=== PATIENT | male | born 1975 | race Caucasian/White ===

== ENCOUNTER 2020-03-12 07:30 | Inpatient (IN) | payer MEDICAID ==
[2020-04-16] MEDS ORDERED: Acetaminophen 500 MG Tab PO ONE (09:30)
[2020-04-16] MEDS ORDERED: Celecoxib 200 MG Cap PO ONE (09:30)
[2020-04-16] MEDS ORDERED: Scopolamine 1.5 MG Transdermal Patch TOP ONE (09:30)
[2020-04-16] MEDS ORDERED: Dextrose 5%-Lactated Ringers 1,000 ML IV SCH ×2 (09:30→16:15)
[2020-04-16 09:31] LABS: HEMOGLOBIN A1C 7.4 % (4.5-6.2)
[2020-04-16] MEDS ORDERED: Succinylcholine 200 MG/10 ML MDV ONE (09:59)
[2020-04-16] MEDS ORDERED: Propofol 200 MG/20 ML SDV ONE (09:59)
[2020-04-16] MEDS ORDERED: Ondansetron 4 MG/2 ML SDV ONE (09:59)
[2020-04-16] MEDS ORDERED: Dexamethasone 4 MG/ML SDV ONE (09:59)
[2020-04-16] MEDS ORDERED: Neostigmine Methylsulfate 1 MG/ML 5 ML Syringe ONE (09:59)
[2020-04-16] MEDS ORDERED: Rocuronium 50 MG/5 ML Vial ONE (09:59)
[2020-04-16] MEDS ORDERED: Glycopyrrolate 0.2 MG/ML 5 ML MDV ONE (09:59)
[2020-04-16] MEDS ORDERED: fentaNYL 250 MCG/5 ML SDV ONE ×2 (09:59→12:11)
[2020-04-16] MEDS ORDERED: Lactated Ringers 1,000 ML ONE (10:03)
[2020-04-16] MEDS ORDERED: Albuterol/Ipratropium 3.0-0.5 MG/3 ML Neb Soln NEB ONE (10:15)
[2020-04-16] MEDS ORDERED: cefOXitin 2 GM in Sodium Chloride 0.9% 50 ML IV ONE (10:30)
[2020-04-16] MEDS ORDERED: Magnesium Sulfate 5.5 GM in Sodium Chloride 0.9% 250 ML IV ONE (11:00)
[2020-04-16] MEDS ORDERED: Ketamine 500 MG/5 ML MDV IV SCH (11:00)
[2020-04-16] MEDS ORDERED: Magnesium Sulfate 3.5 GM in Sodium Chloride 0.9% 100 ML IV SCH (11:00)
[2020-04-16] MEDS ORDERED: Ketamine 50 MG in Sodium Chloride 0.9% 49.5 ML IV SCH (11:00)
[2020-04-16] MEDS ORDERED: cefOXitin 2 GM Vial ONE (12:21)
[2020-04-16] MEDS ORDERED: hydrOXYzine HCL 100 MG/2 ML SDV IM ONE (14:40)
[2020-04-16] MEDS ORDERED: fentaNYL 100 MCG/2 ML SDV IVPUSH ONE ×2 (14:41→14:52)
[2020-04-16] MEDS ORDERED: diphenhydrAMINE 50 MG/ML SDV IVPUSH PRN (16:10)
[2020-04-16] MEDS ORDERED: HYDROmorphone 0.5 MG/0.5 ML Syringe IVPUSH PRN (16:10)
[2020-04-16] MEDS ORDERED: Acetaminophen 500 MG Tab PO PRN (16:10)
[2020-04-16] MEDS ORDERED: Labetalol 20 MG/4 ML Syringe IVPUSH PRN (16:10)
[2020-04-16] MEDS ORDERED: Albuterol/Ipratropium 3.0-0.5 MG/3 ML Neb Soln INH PRN (16:10)
[2020-04-16] MEDS ORDERED: Calcium Gluconate 10% 1 GM/10 ML SDV IVPUSH PRN (16:10)
[2020-04-16] MEDS ORDERED: hydrOXYzine HCL 100 MG/2 ML SDV IM PRN (16:10)
[2020-04-16] MEDS: Lactated Ringers 1,000 ML IV SCH (16:35)
[2020-04-16] MEDS: HYDROmorphone 1 MG/ML Syringe IV PRN (16:40)
[2020-04-16] MEDS ORDERED: Non-Formulary Medication 1 Each IV ONE (17:03)
[2020-04-16] MEDS ORDERED: Labetalol 100 MG/20 ML MDV IVPUSH PRN (17:03)
[2020-04-16] MEDS: cefOXitin 2 GM in Sodium Chloride 0.9% 50 ML IV SCH ×3 (17:42→22:43)
[2020-04-16] MEDS: MVI, Adult with Vitamin K 10 ML, Thiamine 200 MG, Chromium/Copper/Mang/Selen/Zn 1 ML in... IV SCH ×4 (17:43)
[2020-04-16] MEDS: Pantoprazole 40 MG Vial IVPUSH SCH (17:46)
[2020-04-16] MEDS: Heparin Sodium 5,000 Units/ML Vial SUBCUT SCH (19:42)
[2020-04-16] MEDS: Fluticasone-Salmeterol 232-14 MCG Powder Inhalent INH SCH (20:58)
[2020-04-16] MEDS: Albuterol/Ipratropium 3.0-0.5 MG/3 ML Neb Soln INH SCH (20:58)
[2020-04-16] MEDS: Gabapentin 300 MG Cap PO SCH (21:01)
[2020-04-16] MEDS: Montelukast 10 MG Tab PO SCH (21:01)
[2020-04-16] MEDS: Prazosin 1 MG Cap PO SCH (21:02)
[2020-04-16] MEDS: Acetaminophen 500 MG Tab PO SCH (21:02)
[2020-04-16] MEDS: Insulin Lispro 100 Unit/ML 3 ML KwikPen SUBCUT PRN (22:22)
[2020-04-17] MEDS: HYDROmorphone 1 MG/ML Syringe IV PRN ×4 (01:16→19:15)
[2020-04-17] MEDS: Lactated Ringers 1,000 ML IV SCH ×2 (01:26→09:32)
[2020-04-17] MEDS ORDERED: Iopamidol 612 MG/ML 50 ML SDV PO STA (03:19)
[2020-04-17] MEDS: cefOXitin 2 GM in Sodium Chloride 0.9% 50 ML IV SCH ×3 (05:16→17:43)
[2020-04-17] MEDS: Acetaminophen 500 MG Tab PO SCH ×3 (05:26→21:41)
[2020-04-17] MEDS: Insulin Lispro 100 Unit/ML 3 ML KwikPen SUBCUT PRN (05:38)
[2020-04-17] MEDS: Ondansetron 4 MG/2 ML SDV IVPUSH PRN ×2 (05:42→11:25)
[2020-04-17] MEDS: Albuterol/Ipratropium 3.0-0.5 MG/3 ML Neb Soln INH SCH ×4 (07:16→20:13)
[2020-04-17] MEDS: Fluticasone-Salmeterol 232-14 MCG Powder Inhalent INH SCH ×2 (07:16→20:13)
[2020-04-17] MEDS: Heparin Sodium 5,000 Units/ML Vial SUBCUT SCH ×2 (07:50→20:11)
[2020-04-17] MEDS: Celecoxib 200 MG Cap PO SCH ×2 (09:25→20:15)
[2020-04-17] MEDS: Loratadine 10 MG Tab PO SCH (09:25)
[2020-04-17] MEDS: Escitalopram 20 MG Tab PO SCH (09:26)
[2020-04-17] MEDS: Gabapentin 300 MG Cap PO SCH ×3 (09:26→20:13)
[2020-04-17] MEDS: Hypromellose 0.3% Ophth Soln 15 ML Bottle EYEBOTH SCH (09:35)
[2020-04-17] MEDS: SCOPOLAMINE PATCH CHECK TOP SCH (09:36)
[2020-04-17] MEDS: Brimonidine 0.2% Ophth Soln 5 ML Bottle EYEBOTH SCH (09:36)
[2020-04-17] MEDS: amLODIPine 10 MG Tab PO SCH (09:43)
[2020-04-17] MEDS: Propranolol 60 MG Cap.ER PO SCH (09:43)
[2020-04-17] MEDS: Metoclopramide 10 MG/2 ML SDV IVPUSH PRN (16:03)
[2020-04-17] MEDS: Pantoprazole 40 MG Vial IVPUSH SCH ×2 (16:11→16:34)
[2020-04-17] MEDS: MVI, Adult with Vitamin K 10 ML, Thiamine 200 MG, Chromium/Copper/Mang/Selen/Zn 1 ML in... IV SCH ×4 (16:11)
[2020-04-17] MEDS: Montelukast 10 MG Tab PO SCH (20:15)
[2020-04-17] MEDS: Prazosin 1 MG Cap PO SCH (20:15)
[2020-04-18] MEDS: HYDROmorphone 1 MG/ML Syringe IV PRN ×5 (01:03→22:54)
[2020-04-18] MEDS: Lactated Ringers 1,000 ML IV SCH ×2 (04:34→13:31)
[2020-04-18] MEDS: Acetaminophen 500 MG Tab PO SCH ×3 (05:12→20:59)
[2020-04-18] MEDS ORDERED: methylPREDNISolone Sodium Succinate 40 MG/1 ML SDV IVPUSH ONE (06:46)
[2020-04-18] MEDS ORDERED: methylPREDNISolone Sodium Succinate 40 MG/1 ML SDV ONE (07:04)
[2020-04-18] MEDS: Albuterol/Ipratropium 3.0-0.5 MG/3 ML Neb Soln INH SCH ×4 (07:13→20:54)
[2020-04-18] MEDS: Fluticasone-Salmeterol 232-14 MCG Powder Inhalent INH SCH ×2 (07:13→20:54)
[2020-04-18] MEDS: Metoclopramide 10 MG/2 ML SDV IVPUSH PRN (08:54)
[2020-04-18] MEDS: Ondansetron 4 MG/2 ML SDV IVPUSH PRN (08:55)
[2020-04-18] MEDS ORDERED: Cyanocobalamin (Vitamin B12) 1,000 MCG/ML SDV IM ONE (09:00)
[2020-04-18] MEDS: Celecoxib 200 MG Cap PO SCH ×2 (09:03→20:55)
[2020-04-18] MEDS: amLODIPine 10 MG Tab PO SCH (09:04)
[2020-04-18] MEDS: Loratadine 10 MG Tab PO SCH (09:04)
[2020-04-18] MEDS: Gabapentin 300 MG Cap PO SCH ×3 (09:04→20:58)
[2020-04-18] MEDS: Escitalopram 20 MG Tab PO SCH (09:04)
[2020-04-18] MEDS: Propranolol 60 MG Cap.ER PO SCH (09:04)
[2020-04-18] MEDS: Hypromellose 0.3% Ophth Soln 15 ML Bottle EYEBOTH SCH (09:25)
[2020-04-18] MEDS: Brimonidine 0.2% Ophth Soln 5 ML Bottle EYEBOTH SCH (09:25)
[2020-04-18] MEDS: Heparin Sodium 5,000 Units/ML Vial SUBCUT SCH ×2 (09:26→20:54)
[2020-04-18] MEDS: SCOPOLAMINE PATCH CHECK TOP SCH (09:26)
[2020-04-18] MEDS: Pantoprazole 40 MG Vial IVPUSH SCH ×2 (09:30→21:01)
[2020-04-18] MEDS: Calcium Carbonate 500 MG Tab.Chew PO PRN (09:39)
[2020-04-18] MEDS: methylPREDNISolone Sodium Succinate 125 MG/2 ML SDV IVPUSH SCH ×2 (13:13→17:47)
--- NOTE | 2020-04-18 13:24 | PN ---
DATE OF SERVICE: 04/17/2020 The patient is postop day #1 from a laparoscopic duodenal switch. His esophagus and stomach appear to be emptying quite slowly. At the end of the procedure, we did do an upper endoscopy, which showed wide patency of the entire GI tract to and including the duodenoileostomy, so I think we are getting more of a delayed gastric function, likely related to longstanding diabetes. We will put him down to just ice chips and sips of H2O for today and see how he is doing over the next 24 hours. We will recheck abdominal x-ray tomorrow. With blood sugars coming down satisfactorily, we will not provide any coverage, other than for spot coverage per the sliding scale. It is possible that we are dealing with a case where the stomach is emptying poorly enough that we will need to revise this to a very wide open gastric to small bowel anastomosis to allow more or less passive emptying of the stomach, relying on the pylorus. We will make that assessment over the next day or so. Wesly Cool MD /[id number]
--- NOTE | 2020-04-18 15:06 | PN ---
DATE OF SERVICE: 04/18/2020 The patient has been afebrile with stable vital signs. He continues to, at this point, still to have only minimal oral intake and having some intermittent emesis. As noted on the upper GI x-ray yesterday, the stomach does empty and drain from the short duodenum into the small bowel, but appears to have significant problem with gastroparesis where there is still quite a bit of dye remaining within the stomach and esophagus, even 3 hours post ingestion at the time of the upper GI x-ray initiation. The plan at this point will be to begin Solu- Medrol 60 mg IV q.6 hours to see if this helps decrease some of the edema at the anastomosis, especially at the duodenoileostomy. His blood sugars have been running quite good in the 100s, and it is expected to raise the blood sugars somewhat gingerly, but coverage will be maintained. If by tomorrow we are not able to reestablish adequate oral intake, we would proceed with revision of the patient from a duodenoileostomy to a much wider anastomosis between the small bowel and the distal stomach. This would be completed by conversion to a Thom-en-Y configuration, so as to avoid problems with bile reflux. Wesly Cool MD /[id number]
[2020-04-18] MEDS: MVI, Adult with Vitamin K 10 ML, Thiamine 200 MG, Chromium/Copper/Mang/Selen/Zn 1 ML in... IV SCH ×4 (15:43)
[2020-04-18] MEDS: Prazosin 1 MG Cap PO SCH (20:57)
[2020-04-18] MEDS: Montelukast 10 MG Tab PO SCH (20:58)
[2020-04-18] MEDS: Insulin Lispro 100 Unit/ML 3 ML KwikPen SUBCUT PRN (21:03)
[2020-04-19] MEDS: methylPREDNISolone Sodium Succinate 125 MG/2 ML SDV IVPUSH SCH ×5 (00:25→23:22)
[2020-04-19] MEDS: Lactated Ringers 1,000 ML IV SCH ×2 (00:28→09:58)
[2020-04-19] MEDS: Acetaminophen 500 MG Tab PO SCH ×3 (05:11→21:53)
[2020-04-19] MEDS: Insulin Lispro 100 Unit/ML 3 ML KwikPen SUBCUT PRN ×4 (05:12→22:07)
[2020-04-19] MEDS: HYDROmorphone 1 MG/ML Syringe IV PRN ×3 (06:28→17:18)
[2020-04-19] MEDS: Fluticasone-Salmeterol 232-14 MCG Powder Inhalent INH SCH ×2 (07:13→20:03)
[2020-04-19] MEDS: Albuterol/Ipratropium 3.0-0.5 MG/3 ML Neb Soln INH SCH ×4 (07:51→20:02)
--- NOTE | 2020-04-19 09:09 | CR ---
UGI Limited HISTORY: Postbariatric surgery FINDINGS: Patient swallowed water-soluble contrast. Upright views of the abdomen show no evidence of extravasation. There is some hold up at the gastroesophageal junction. This may represent some spasm. There are 2 surgical drains in the upper abdomen IMPRESSION: Status post bariatric surgery No extravasation or obstruction seen. There is some hold up at the GE junction which may be spasm
[2020-04-19] MEDS: Brimonidine 0.2% Ophth Soln 5 ML Bottle EYEBOTH SCH (09:33)
[2020-04-19] MEDS: Hypromellose 0.3% Ophth Soln 15 ML Bottle EYEBOTH SCH (09:34)
[2020-04-19] MEDS: Celecoxib 200 MG Cap PO SCH ×2 (09:34→20:02)
[2020-04-19] MEDS: amLODIPine 10 MG Tab PO SCH (09:35)
[2020-04-19] MEDS: Propranolol 60 MG Cap.ER PO SCH (09:35)
[2020-04-19] MEDS: Heparin Sodium 5,000 Units/ML Vial SUBCUT SCH ×2 (09:36→20:07)
[2020-04-19] MEDS: Pantoprazole 40 MG Vial IVPUSH SCH ×2 (09:36→21:47)
[2020-04-19] MEDS: Gabapentin 300 MG Cap PO SCH ×3 (09:40→20:04)
[2020-04-19] MEDS: Escitalopram 20 MG Tab PO SCH (09:40)
[2020-04-19] MEDS: Loratadine 10 MG Tab PO SCH ×2 (09:40→21:47)
[2020-04-19] MEDS: Metoclopramide 10 MG/2 ML SDV IVPUSH PRN ×3 (09:52→21:56)
--- NOTE | 2020-04-19 10:12 | CR ---
Abdomen 2V AP Flat Upright CLINICAL HISTORY: Vomiting, gastroparesis FINDINGS: Patient is status post bariatric surgery. There are 2 surgical drains in the upper abdomen. No free air is identified. Intestinal gas pattern is nonacute. There is contrast in the right colon. IMPRESSION: Status post bariatric surgery Abdominal drains remain in place Nonacute intestinal gas pattern
[2020-04-19] MEDS: Cyclobenzaprine 10 MG Tab PO PRN ×2 (12:05→23:23)
--- NOTE | 2020-04-19 12:34 | PN ---
DATE OF SERVICE: 04/19/2020 SUBJECTIVE: Maged feels like he is doing a little bit better. He denies any pain. Vital signs have been stable. Blood sugars are 218 and 247. Tolerating the Solu-Medrol without any difficulty. REVIEW OF SYSTEMS: Maged Bowden is a 44-year-old male, who is postoperative day #3 following a duodenal switch. He reports, at this time, no nausea. Remainder of review of systems negative for any pertinent positives and negatives. OBJECTIVE: GENERAL: Maged Bowedn is a 44-year-old male. He is alert and orientated. VITAL SIGNS: TPR at 0708, 96, 109, 16, blood pressure 137/99. HEENT: Negative. NECK: Supple. HEART: Regular rate and rhythm. LUNGS: Clear. ABDOMEN: Dressings dry and intact. Abdominal binder is on. EXTREMITIES: Without peripheral edema. ASSESSMENT: Laparoscopic duodenal switch, liver biopsy, repair of diaphragmatic hernia, and excision of mediastinal lipoma for morbid obesity, hepatomegaly, history of nonalcoholic steatohepatitis, diaphragmatic hernia, and mediastinal lipoma. PLAN: 1. Start step 1 gastric bypass diet. 2. Continue use of incentive spirometer. 3. We will evaluate p.r.n. or in a.m. Celeste Kim PA-C /[id number]
[2020-04-19] MEDS: MVI, Adult with Vitamin K 10 ML, Thiamine 200 MG, Chromium/Copper/Mang/Selen/Zn 1 ML in... IV SCH ×4 (15:50)
[2020-04-19] MEDS: Prazosin 1 MG Cap PO SCH (20:06)
[2020-04-19] MEDS: Montelukast 10 MG Tab PO SCH (20:08)
[2020-04-19] MEDS: oxyCODONE 5 MG Tab PO PRN (23:22)
[2020-04-20] MEDS: Lactated Ringers 1,000 ML IV SCH ×2 (01:58→11:29)
[2020-04-20] MEDS: Insulin Lispro 100 Unit/ML 3 ML KwikPen SUBCUT PRN ×4 (04:35→22:13)
[2020-04-20] MEDS: methylPREDNISolone Sodium Succinate 125 MG/2 ML SDV IVPUSH SCH ×4 (05:44→23:04)
[2020-04-20] MEDS: Acetaminophen 500 MG Tab PO SCH ×3 (05:47→22:35)
[2020-04-20] MEDS: oxyCODONE 5 MG Tab PO PRN ×2 (05:49→22:10)
[2020-04-20] MEDS: HYDROmorphone 1 MG/ML Syringe IV PRN (07:04)
[2020-04-20] MEDS: Albuterol/Ipratropium 3.0-0.5 MG/3 ML Neb Soln INH SCH ×4 (07:15→20:37)
[2020-04-20] MEDS: Fluticasone-Salmeterol 232-14 MCG Powder Inhalent INH SCH ×2 (07:15→20:41)
[2020-04-20] MEDS: Metoclopramide 10 MG/2 ML SDV IVPUSH PRN ×3 (07:18→18:40)
[2020-04-20] MEDS ORDERED: hydrOXYzine HCl 25 MG Tab PO PRN (07:25)
[2020-04-20] MEDS ORDERED: Ondansetron 4 MG Tab.DIS PO PRN (07:26)
[2020-04-20] MEDS: Heparin Sodium 5,000 Units/ML Vial SUBCUT SCH ×2 (09:15→20:41)
[2020-04-20] MEDS: Hypromellose 0.3% Ophth Soln 15 ML Bottle EYEBOTH SCH (09:16)
[2020-04-20] MEDS: Brimonidine 0.2% Ophth Soln 5 ML Bottle EYEBOTH SCH (09:17)
[2020-04-20] MEDS: Gabapentin 300 MG Cap PO SCH ×3 (09:17→20:40)
[2020-04-20] MEDS: Celecoxib 200 MG Cap PO SCH ×2 (09:18→20:40)
[2020-04-20] MEDS: Escitalopram 20 MG Tab PO SCH (09:18)
[2020-04-20] MEDS: Propranolol 60 MG Cap.ER PO SCH (09:19)
[2020-04-20] MEDS: amLODIPine 10 MG Tab PO SCH (09:21)
[2020-04-20] MEDS: Docusate Sodium 100 MG Cap PO SCH ×2 (11:17→20:40)
[2020-04-20] MEDS: Loratadine 10 MG Tab PO SCH (11:17)
[2020-04-20] MEDS: Bisacodyl 5 MG Tab PO SCH ×2 (11:17→20:40)
[2020-04-20] MEDS: Pantoprazole 40 MG Vial IVPUSH SCH (11:18)
[2020-04-20] MEDS ORDERED: Gabapentin 250 MG/5 ML Solution ML 470 ML Bottle PO SCH (14:00)
--- NOTE | 2020-04-20 14:38 | PN ---
DATE OF SERVICE: 04/20/2020 SUBJECTIVE: Maged had a total intake of 640. He had nausea once in the past 24 hours and had emesis of 50 mL. Pain continues to be managed with IV Dilaudid. REVIEW OF SYSTEMS: Remainder of review of systems negative for any pertinent positives and negatives. OBJECTIVE: GENERAL: Maged Bowden is a 44-year-old male, alert, orientated. VITAL SIGNS: TPR at 0723, 96.8; 73; 18; blood pressure 141/87. HEENT: Negative. NECK: Supple. HEART: Regular rate and rhythm. LUNGS: Clear. ABDOMEN: Dressings dry and intact. Abdominal binder is on. EXTREMITIES: Without peripheral edema. ASSESSMENT: Laparoscopic duodenal switch, liver biopsy, repair of diaphragmatic hernia, and excision of mediastinal lipoma for morbid obesity, hepatomegaly, history of nonalcoholic steatohepatitis, diaphragmatic hernia, and mediastinal lipoma. Date of surgery: 04/16/2020. Surgeon: Wesly Cool MD. PLAN: 1. Discontinue IV Dilaudid, Colace 100 mg b.i.d., Dulcolax tablets 10 mg b.i.d. until the patient has bowel movement. 2. Communication order: 3 med cups per hour, 1 every 20 minutes. 3. We will evaluate p.r.n. or in a.m. Celeste Kim PA-C /[id number]
[2020-04-20] MEDS: MVI, Adult with Vitamin K 10 ML, Thiamine 200 MG, Chromium/Copper/Mang/Selen/Zn 1 ML in... IV SCH ×4 (15:43)
[2020-04-20] MEDS: Pantoprazole 40 MG Delayed-Release Granules 1 Packet PO SCH (20:40)
[2020-04-20] MEDS: Montelukast 10 MG Tab PO SCH (20:40)
[2020-04-20] MEDS: Prazosin 1 MG Cap PO SCH (20:41)
[2020-04-20] MEDS: Cyclobenzaprine 10 MG Tab PO PRN (22:10)
[2020-04-20] MEDS: Calcium Carbonate 500 MG Tab.Chew PO PRN (22:22)
[2020-04-21] MEDS: Metoclopramide 10 MG/2 ML SDV IVPUSH PRN (01:16)
[2020-04-21] MEDS: Lactated Ringers 1,000 ML IV SCH (01:19)
[2020-04-21] MEDS: oxyCODONE 5 MG Tab PO PRN ×2 (05:00→11:57)
[2020-04-21] MEDS: methylPREDNISolone Sodium Succinate 125 MG/2 ML SDV IVPUSH SCH (05:00)
[2020-04-21] MEDS: Insulin Lispro 100 Unit/ML 3 ML KwikPen SUBCUT PRN ×2 (06:00→10:04)
[2020-04-21] MEDS: Acetaminophen 500 MG Tab PO SCH (06:00)
[2020-04-21] MEDS: Fluticasone-Salmeterol 232-14 MCG Powder Inhalent INH SCH (07:00)
[2020-04-21] MEDS: Albuterol/Ipratropium 3.0-0.5 MG/3 ML Neb Soln INH SCH ×2 (07:22→10:54)
[2020-04-21] MEDS: Docusate Sodium 100 MG Cap PO SCH (09:51)
[2020-04-21] MEDS: Bisacodyl 5 MG Tab PO SCH (09:51)
[2020-04-21] MEDS: Loratadine 10 MG Tab PO SCH (09:52)
[2020-04-21] MEDS: Hypromellose 0.3% Ophth Soln 15 ML Bottle EYEBOTH SCH (09:52)
[2020-04-21] MEDS: Heparin Sodium 5,000 Units/ML Vial SUBCUT SCH (09:52)
[2020-04-21] MEDS: Brimonidine 0.2% Ophth Soln 5 ML Bottle EYEBOTH SCH (09:52)
[2020-04-21] MEDS: Celecoxib 200 MG Cap PO SCH (09:52)
[2020-04-21] MEDS: Gabapentin 300 MG Cap PO SCH (09:53)
[2020-04-21] MEDS: Propranolol 60 MG Cap.ER PO SCH (09:53)
[2020-04-21] MEDS: Escitalopram 20 MG Tab PO SCH (09:53)
[2020-04-21] MEDS: amLODIPine 10 MG Tab PO SCH (09:54)
[2020-04-21] MEDS: Pantoprazole 40 MG Delayed-Release Granules 1 Packet PO SCH (09:54)
--- NOTE | 2020-04-21 16:25 | OR ---
DATE OF PROCEDURE: 04/16/2020 SURGEON: Wesly Cool MD PREOPERATIVE DIAGNOSES: 1. Morbid obesity. 2. Nonalcoholic steatohepatitis. POSTOPERATIVE DIAGNOSES: 1. Morbid obesity. 2. Nonalcoholic steatohepatitis. 3. Paraesophageal diaphragmatic hernia. 4. Mediastinal lipoma. OPERATIVE PROCEDURE: Diagnostic laparoscopy with: 1. Laparoscopic duodenal switch (48505). 2. David-Cut needle liver biopsy (05963). 3. Repair of paraesophageal diaphragmatic hernia (26625). 4. Excision of mediastinal lipoma (59729). ANESTHESIA: General. INDICATIONS FOR PROCEDURE: This is a 44-year-old presenting with longstanding morbid obesity and increasingly significant comorbidities, especially regarding his type 2 diabetes mellitus. After preoperative evaluation and discussion, he wished to proceed with a duodenal switch. Potential risks of the procedure including bleeding, infection, injury to underlying viscera, and problems with leaks or obstruction at the anastomosis as well as possibility of cardiopulmonary, septic, or hemorrhagic complications leading to were discussed, and the patient wishes to proceed. The patient has a history of significant liver disease related to the obesity and diabetes, but will be undergoing a needle liver biopsy for update of the histologic status as per routine. DETAILS OF PROCEDURE: The patient was taken to the operating room. After general endotracheal anesthesia was induced, the patient was converted to a lithotomy position and the abdomen prepped and draped. Burrows catheter was inserted. A 20 cm inferior and 5 cm left of the xiphoid transverse incision was made, and the peritoneal cavity entered under direct vision with an Optiview trocar, inflated to 15 mmHg pressure with CO2. Laparoscope was then reinserted. No underlying trocar insertion site injuries were seen. Following this, 6 additional trocars were placed across the mid abdomen. Bilateral transversus abdominis plane blocks were then placed and the upper abdomen examined. As expected, the patient was noted to have marked hepatomegaly with liver being grossly fatty infiltrated. David-Cut needle biopsy was obtained from left lobe of liver. Minimal bleeding from biopsy sites was controlled with electrocautery. The liver was then retracted anteriorly. The patient was noted to have a fairly significant paraesophageal diaphragmatic hernia consistent with his history of quite severe reflux. This contained prolapsed perigastric fat in the gastric fundus along with edge of some omentum. This was reduced, and peritoneum overlying was incised and reflected downward. The crura were dissected from the esophagus on each side. During the course of dissection, mediastinal lipoma was encountered. Once this was removed so as to facilitate more adequate crural repair, crural repair was accomplished with some 0 Ethibond sutures, reinforced with PTFE pledgets. These were placed in an anterior location. At this point, the sleeve gastrectomy phase of the procedure began with division of the omentum away from the mid greater curvature of the stomach. This dissection was then continued proximally across the short gastric vessels including the highest and posterior short gastric vessels. Some attachments to the area around the left paola to the gastric fundus were then also taken down with Harmonic scalpel until that area was well skeletonized. Dissection then continued with removal of the omentum away from the greater curvature of the stomach in distal direction. Two of these areas were divided with christian. The thickness and propensity for bleeding using Harmonic scalpel in that setting, so this was continued to a point 4 cm distal to the pylorus. A sleeve gastrectomy excision was then accomplished beginning at 6 cm proximal to the pylorus. The area in front of the sleeve gastrectomy staple line was marked out anteriorly with care taken to avoid overtightening of the incisura angularis. The first 2 firings of the excision were with un-reinforced JENISE black loads. At that point, then a 40-Tamazight chest tube was placed orally through the esophagus and into the lesser curvature of the stomach. This was then used as a point of reference for remainder of the sleeve gastrectomy excision, which was accomplished with a combination of reinforced black and purple JENISE loads. Once this was completed, the gastrectomy staple line appeared to be intact, and the stomach was subsequently delivered from the field. The dissection began behind the duodenum 4 cm distal to the pylorus. Once this was completed, the duodenal division was accomplished with reinforced JENISE purple load. Some of the lesser omental tissue along the level of duodenum was then divided following the duodenal stump to drop somewhat further to facilitate a tension-free anastomosis. Prior to the gastrectomy being undertaken and the duodenum being divided, the small bowel was identified at the ileocecal valve and traced back 300 cm. This easily came up to the level of the duodenum. At this point, the area was then sutured down to the superior and inferior aspects of the proximal duodenum with some 3-0 Vicryl stitch to act as stay sutures. Small enterotomies in the divided duodenum and adjacent ileum were then made, and a 30 mm JENISE hayden load was then placed with one arm in each of the segments of the adjacent bowel and fired thus creating initial internal opening. The common opening was then closed after 3 stay sutures were placed at that area allowing this to be elevated, and the opening was then closed with a JENISE purple load. On completion of this, staple lines appeared to be intact. The purple load staple line area was then reinforced with some 3-0 Vicryl seromuscular stitch. An upper GI endoscope was then passed orally through the length of the esophagus into the sleeve gastrectomy and from there through the pylorus and into the area of the duodenal ileostomy. All of these areas appeared to be patent with good flow of air noted into the ileum beyond the anastomosis. During the course of this, the area was flooded with antibiotic-containing saline solution and no leaks or other problems were noted. The scope was then withdrawn and the procedure then concluded. At this point, a decision was made not to do the Thom-en-Y anastomosis as the mesentry was quite thickened, and this anastomosis at its mid portion might put the existing duodenal ileostomy at risk, and this procedure could be completed at a later date should that be necessary. The duodenal ileostomy as well as the sleeve gastrectomy staple line were then reinforced with fibrin sealant. At the area around the esophagogastric junction, the omentum was also tacked up to limit chances of leaking at that area. Two stitches were placed between the ileum just proximal to the duodenal ileostomy to the adjacent antrum of the stomach to create an angulation in that area to encourage fluid entering the ileum to pass in a distal direction. This was done with 0 Ethibond sutures, and at that point, the gastric specimen was retrieved. No further problems noted. Two Adán-Ricks drains were placed, one in the area around the esophagogastric junction and from there up into the splenic fossa and one adjacent to the duodenal ileostomy. Trocars were sequentially removed. Peritoneal cavity deflated. Incisions were closed with 4-0 Vicryl skin stitch. Dressing applied. The patient was taken to the recovery room in satisfactory condition. There were no other complications noted. Wesly Cool MD /[id number]
--- NOTE | 2020-04-22 05:18 | DISCH ---
ADMISSION DIAGNOSES: 1. Morbid obesity, BMI 35.3. 2. Obstructive sleep apnea. 3. Type 2 diabetes. 4. Essential hypertension. 5. MCAD deficiency. 6. Meibomian gland dysfunction. DISCHARGE DIAGNOSES: 1. Laparoscopic duodenal switch. 2. Liver biopsy. 3. Repair of diaphragmatic hernia. 4. Excision of mediastinal lipoma. POSTOPERATIVE DIAGNOSES: 1. Morbid obesity. 2. Hepatomegaly. 3. History of nonalcoholic steatohepatitis. 4. Diaphragmatic hernia. 5. Mediastinal lipoma. Date of surgery 04/16/2020. Surgeon: Wesly Cool MD. HISTORY: Maged Bowden is a 44-year-old male with longstanding history of morbid obesity and increasing comorbidities. After preoperative evaluation and discussion of possible risks and possible complications, he wished to proceed with surgical procedure. HOSPITAL COURSE: Maged had a surgery on 04/16/2020. He had no operative complications. On postoperative day #1, upper GI showed his esophagus and stomach emptying quite slowly. At the end of the procedure, an upper endoscopy showed wide patency of the entire GI tract to include the duodenal ileostomy. Diagnosis appeared to be delayed gastric function related to long-standing diabetes. He continued on ice chips and sips of water over the next 24 hours. Blood sugars were coming down. On postoperative day 2, he still had only minimal oral intake and some intermittent emesis. He was started on Solu-Medrol 60 mg IV every 6 hours to decrease the edema at the anastomosis. Blood sugars were good in the 100s and were expected to be a little bit higher due to the Solu-Medrol. On 04/19/2020, he continued with the IV Solu-Medrol, started on step 1 gastric bypass diet, and on 04/20/2020, IV Dilaudid was discontinued, started on stool stimulation, Colace 100 mg b.i.d., and Dulcolax tablets 10 mg b.i.d. until BM. On 04/21/2020, he was able to be discharged to home with no complications. Oral intake 1380 and urine output 4200. OBJECTIVE: GENERAL: Maged is a 44-year-old male, alert, orientated. VITAL SIGNS: Height is 5 feet 10.87 inches. Weight is 251 pounds. BMI is 35.3. TPR at 0700 at 97, 158, 16. Blood pressure 131/78. HEENT: Negative. NECK: Supple. HEART: Regular rate and rhythm. LUNGS: Clear. ABDOMEN: Dressings dry and intact. MARIO drains will be removed and 4x4s over MARIO drain sites. Abdominal binder is on. EXTREMITIES: Without peripheral edema. DISPOSITION: Discharged to home. CONDITION: Stable and improving. FOLLOWUP APPOINTMENT: With Celeste Kim PA-C, on 04/26/2020 at 11 a.m. HOME MEDICATIONS: 1. Flexeril 10 mg every 6 hours p.r.n. muscle spasms, #30. 2. Hydroxyzine 50 mg every 4 hours p.r.n. pain, #30. 3. Levsin 0.125 mg sublingual every 4 hours p.r.n. esophageal spasms. 4. He is to increase Nexium 40 mg oral twice daily. 5. Prednisone 20 mg oral daily. He is to take 2 once daily for 2 days, take 1 daily for 3 days, take a half once a day for 6 days, then stop. 6. Reglan 10 mg oral every 6 hours, scheduled for 7 days. 7. Tylenol 1000 mg every 8 hours. 8. He is to resume albuterol ProAir inhaler 2 puffs 4 times a day. 9. Proventil nebulizer 3 mL every 6 hours p.r.n. shortness of breath. 10.Brimonidine ophthalmic solution, 1 drop both eyes. 11.Symbicort 2 puffs inhalation twice daily. 12.Celebrex 200 mg b.i.d. 13.Clobetasol 30 g topical daily. 14.Lexapro 20 mg oral daily. 15.Flonase 1 spray nasal daily. 16.Neurontin 900 mg oral 3 times a day. 17.Qbrexza topical as directed. 18.Claritin 10 mg oral daily. 19.Singulair 10 mg oral daily. 20.Minipress 1 mg at bedtime. 21.Inderal LA 360 mg oral daily. 22.Norvasc 10 mg oral daily. 23.Lipitor 10 mg oral daily at bedtime. 24.Restasis 1 drop in both eyes daily. 25.Lopid 600 mg oral 3 times a day. 26.Zanaflex 4 mg oral every 8 hours p.r.n. pain. He is to discontinue taking doxycycline, glimepiride, Amaryl, Lantus, Insulin aspart FlexPen, multivitamin, glipizide and metformin. DIET: Step 2 gastric bypass diet with no cereal until 05/16/2020. Drink 8 to 10 glasses of water a day. ACTIVITY: No lifting greater than 10 pounds for 2 weeks. Other activity: Walk at least 6 times daily inside your home. Driving after discharge, do not drive for 1 week. May shower. Notify provider if any fever, increased pain, nausea, or vomiting. Keep site clean and dry. Wound incision care. Wear abdominal binder for 2 weeks and as tolerated. SPECIAL INSTRUCTIONS: 1. To check blood sugars 4 times a day, record results and send to clinic by way of [facility]. 2. Use incentive spirometer 10 times every hour while awake for 1 week.
== END 2020-04-21 13:00 | disposition home or self-care (01) | DRG 620 ==
LOC: JP.SDS 04-16 08:50 → EDSTATUS 04-16 09:45 → JP.MS 04-16 14:30
PROVIDERS: ADMIT Surgery; ATTEND Surgery
PROC: 0D194ZB Bypass Duodenum to Ileum, Percutaneous Endoscopic Approach (ICD-10-PCS; principal; 2020-04-16)
PROC: 0DB64Z3 Excision of Stomach, Percutaneous Endoscopic Approach, Vertical (ICD-10-PCS; 2020-04-16)
PROC: 0FB24ZX Excision of Left Lobe Liver, Percutaneous Endoscopic Approach, Diagnostic (ICD-10-PCS; 2020-04-16)
PROC: 0BQT4ZZ Repair Diaphragm, Percutaneous Endoscopic Approach (ICD-10-PCS; 2020-04-16)
PROC: 0JB63ZZ Excision of Chest Subcutaneous Tissue and Fascia, Percutaneous Approach (ICD-10-PCS; 2020-04-16)
DX: E66.01 Morbid (severe) obesity due to excess calories (principal); E71.311 Medium chain acyl CoA dehydrogenase deficiency; G47.33 Obstructive sleep apnea (adult) (pediatric); I10 Essential (primary) hypertension; H02.889 Meibomian gland dysfunction of unspecified eye, unspecified eyelid; R16.0 Hepatomegaly, not elsewhere classified; K75.81 Nonalcoholic steatohepatitis (NASH); K44.9 Diaphragmatic hernia without obstruction or gangrene; D17.1 Benign lipomatous neoplasm of skin and subcutaneous tissue of trunk; F31.9 Bipolar disorder, unspecified; J45.20 Mild intermittent asthma, uncomplicated; E78.5 Hyperlipidemia, unspecified; K21.9 Gastro-esophageal reflux disease without esophagitis; E11.42 Type 2 diabetes mellitus with diabetic polyneuropathy; Z79.4 Long term (current) use of insulin; Z68.35 Body mass index [BMI] 35.0-35.9, adult
CPT/HCPCS: 36415; 74019; 74019-26; 74240; 74240-26; 80053; 82962; 83036; 83735; 83880; 84100; 85025; 85027; 86850; 86900; 86901; 93005; 94640; A9270-GY; C9113; J0171; J0330; J0694; J1100; J1170; J1644; J1815; J2405; J2704; J2710; J2765; J2795; J2920; J2930; J3010; J3410; J3411; J3420; J3475; J3490; J7050; J7120; J7121; J7620-GY; Q9967

== ENCOUNTER 2020-04-25 05:45 | Day surgery (SDC) | payer MEDICAID ==
[2020-04-25] MEDS: MVI, Adult with Vitamin K 10 ML, Chromium/Copper/Mang/Selen/Zn 1 ML, Thiamine 200 MG in... IV ONE ×8 (07:01→08:09)
[2020-04-25] MEDS ORDERED: fentaNYL 100 MCG/2 ML SDV ONE (07:12)
[2020-04-25] MEDS ORDERED: Propofol 200 MG/20 ML SDV ONE (07:12)
[2020-04-25] MEDS ORDERED: Midazolam 1 MG/ML 2 ML SDV ONE (07:12)
[2020-04-25] MEDS ORDERED: Lactated Ringers 1,000 ML IV ONE (07:45)
[2020-04-25] MEDS ORDERED: Cyanocobalamin (Vitamin B12) 1,000 MCG/ML SDV IM ONE (07:45)
[2020-04-25] MEDS ORDERED: Glycopyrrolate 0.2 MG/ML 2 ML SDV IV ONE (07:45)
--- NOTE | 2020-04-26 11:09 | OR ---
DATE OF PROCEDURE: 04/25/2020 SURGEON: Wesly Cool MD PREOPERATIVE DIAGNOSIS: Possible stricture of duodenoileostomy, status post duodenal switch. POSTOPERATIVE DIAGNOSIS: Normal examination, status post duodenal switch. OPERATIVE PROCEDURE: Upper GI endoscopy with dilation of pylorus and adjacent duodenoileostomy (18423). ANESTHESIA: IV sedation. INDICATIONS: The patient is status post recent duodenal switch. He presents with some ongoing problems with nausea and intermittent vomiting. Plan is to proceed with upper GI endoscopy with dilation as indicated. Potential risks including bleeding and perforation were discussed, and the patient wishes to proceed. DETAILS OF PROCEDURE: The patient was taken to the operating room and placed in a left lateral decubitus position. IV sedation was administered, after which the upper GI endoscope was passed orally through the length of the esophagus into the stomach and from there through the pyloric channel and roughly 10 cm distal to the duodenoileostomy. Findings included small amount of retained bile within the distal stomach, otherwise sleeve gastrectomy component was unremarkable. As one passed through the pylorus, this was noted to be somewhat reddened and edematous. Just beyond that was the duodenoileostomy. This was widely patent. There was some fibrinous material along the anastomotic staple line, but otherwise this was quite open, and the scope was able to passed several centimeters into the efferent limb of the ileum without further areas of obstruction being identified. To facilitate gastric emptying, Bard gastrointestinal balloon catheter was then centered across the pylorus. This included the area of the duodenoileostomy, although this was not significantly stenotic. This was inflated to 36-Lithuanian size, after which the balloon catheter was deflated and withdrawn. There did appear to be some increased diameter of the pylorus at this point and the procedure was then concluded. The patient was taken to the recovery room in satisfactory condition. The patient's problems with nausea and vomiting appeared to be primarily related to diabetic gastroparesis at this point. This was reviewed with the patient and his , and some coaching in regard to oral intake was gone over. The patient was due to have sutures removed tomorrow in the clinic, these were removed today, and we will see the patient back in a week from Sunday, otherwise in 8 days. Wesly Cool MD /[id number]
== END 2020-04-25 10:10 | disposition home or self-care (01) ==
LOC: JP.SDS 05:45
PROVIDERS: ATTEND Surgery
DX: R11.2 Nausea with vomiting, unspecified (principal); J45.909 Unspecified asthma, uncomplicated; G47.33 Obstructive sleep apnea (adult) (pediatric); I10 Essential (primary) hypertension; E66.9 Obesity, unspecified; K21.9 Gastro-esophageal reflux disease without esophagitis; Z98.84 Bariatric surgery status; Z68.32 Body mass index [BMI] 32.0-32.9, adult
CPT/HCPCS: 43245; J2250; J2704; J3010; J3411; J3420; J3490; J7120

== ENCOUNTER → 2021-05-20 | Day surgery (SDC) | payer MEDICAID ==
[~2021-05-20] MED LIST: Cyanocobalamin (Vitamin B12) 1,000 MCG/ML SDV IM ONE; Glycopyrrolate 0.2 MG/ML 2 ML SDV IVPUSH ONE; Lactated Ringers 1,000 ML IV ONE; MVI, Adult with Vitamin K 10 ML, Thiamine 200 MG, Zinc/Copper/Manganese/Selenium 1 ML i... IV ONE; Midazolam 1 MG/ML 2 ML SDV ONE; Propofol 200 MG/20 ML SDV ONE; fentaNYL 100 MCG/2 ML SDV ONE
[2021-05-20] MEDS: Lactated Ringers 1,000 ML IV ONE ×2 (08:00→11:22)
--- NOTE | 2021-05-29 14:03 | OR ---
DATE OF PROCEDURE: 05/20/2021 SURGEON: Wesly Cool MD PREOPERATIVE DIAGNOSIS: History of emesis of undigested food status post duodenal switch. POSTOPERATIVE DIAGNOSIS: Grossly normal examination other than mild bile gastritis status post duodenal switch. OPERATIVE PROCEDURE: Esophagogastroduodenoscopy with dilation of the pylorus (60375). ANESTHESIA: IV sedation. INDICATIONS FOR PROCEDURE: This is a 46-year-old male status post duodenal switch 13 months ago. At the time of the original operation, the patient was a longstanding diabetic. His diabetes now has clinically resolved in terms of not requiring any medications, but he was felt to still have some element of diabetic gastroparesis which is unlikely to resolve to a great extent. Plan is to proceed with an upper GI endoscopy with biopsies and/or dilation as indicated. Potential risks including bleeding and perforation were discussed, and the patient wishes to proceed. DETAILS OF PROCEDURE: The patient was taken to the operating room, placed in a left lateral decubitus position. IV sedation was administered after which the upper GI endoscope was passed orally through the length of the esophagus and into the stomach. Within the sleeve gastrectomy, there was some scattered bile and some mild bile gastritis. Apart from that, the pylorus and duodenoileostomy were normally patent. We did dilate the pylorus, and in turn, to the extent that it might be dilated, the duodenoileostomy with a 45-Estonian balloon dilator. This did appear to increase the size of the pylorus somewhat which might facilitate more rapid gastric emptying, however, this was likely to be somewhat of a transient effect. The scope was then withdrawn. The procedure then concluded. The patient at this point will need to be cognizant of what foods are giving him problems in terms of the intermittent emesis. Over time, I think he will probably be able to figure out foods to avoid to minimize those episodes. Otherwise, he will be following up with Celeste Kim in [facility] via virtual visit in roughly 1 month. Wesly Cool MD /[id number]
== END ==
LOC: JP.SDS 07:18
PROVIDERS: ATTEND Surgery
DX: K29.60 Other gastritis without bleeding (principal); K31.89 Other diseases of stomach and duodenum; I10 Essential (primary) hypertension; G47.33 Obstructive sleep apnea (adult) (pediatric); J45.909 Unspecified asthma, uncomplicated; E11.9 Type 2 diabetes mellitus without complications; Z88.8 Allergy status to other drugs, medicaments and biological substances; Z88.6 Allergy status to analgesic agent; Z98.890 Other specified postprocedural states
CPT/HCPCS: 43245; J2250; J2704; J3010; J3411; J3420; J3490; J7120